=== PATIENT | female | born 1950 | race Caucasian/White ===

== ENCOUNTER → 2017-07-03 | Outpatient (CLI) | payer MEDICARE, OTHER ==
[~2017-07-03] MED LIST: Ativan1 MG PO; CALCAVITDA PO; CHOL10002; LORA.5 PO
[2017-07-03 17:47] LABS: Adenovirus F 40/41 Not Detected (NOT DETECT); Campylobacter Sp Not Detected (NOT DETECT); Cryptosporidium Not Detected (NOT DETECT); Cyclospora Cayetanensis Not Detected (NOT DETECT); E. Coli O157 Not Detected (NOT DETECT); Entamoeba Histolytica Not Detected (NOT DETECT); Enteroaggregative E. coli-EAEC Not Detected (NOT DETECT); Enteropathogenic E. coli-EPEC Not Detected (NOT DETECT); Enterotoxigenic E. coli-ETEC Not Detected (NOT DETECT); Giardia Lamblia Not Detected (NOT DETECT); Norovirus GI/GII Not Detected (NOT DETECT); Plesiomonas Shigelloides Not Detected (NOT DETECT); Rotavirus A Not Detected (NOT DETECT); Salmonella Sp Not Detected (NOT DETECT); Sapovirus Not Detected (NOT DETECT); Shiga Toxin-prod E. coli-STEC Not Detected (NOT DETECT); Shigella/Enteroin E. coli-EIEC Not Detected (NOT DETECT); Vibrio Cholerae Not Detected (NOT DETECT); Vibrio Sp Not Detected (NOT DETECT); Yersinia Enterocolitica Not Detected (NOT DETECT)
[2017-07-03 19:33] LABS: Astrovirus Detected (NOT DETECT)
== END | disposition home or self-care (01) ==
LOC: LAB EV 12:10 → LAB SHORT 12:10
PROVIDERS: Physician Assistant Medical
DX: K52.9 Noninfective gastroenteritis and colitis, unspecified (principal)
CPT/HCPCS: 87507

== ENCOUNTER → 2017-08-28 | Outpatient (CLI) | payer MEDICARE, OTHER ==
[2017-08-29 14:35] LABS: Calcium, Urine 20.9 mg/dL (2.0-17.5); Calcium, Urine Calculation 480.7 mg/24hrs (42.0-353.0)
[2017-08-29 14:41] LABS: Creatinine Urine 39.2 mg/dL (27.00-270.00)
== END ==
LOC: LAB 04:20 → LAB SHORT 04:20
PROVIDERS: Internal Medicine Endocrinology, Diabetes & Metabolism
DX: M81.0 Age-related osteoporosis without current pathological fracture (principal)
CPT/HCPCS: 81050; 82340; 82570

== ENCOUNTER 2019-02-08 06:44 | Day surgery (SDC) | payer MEDICARE, OTHER ==
[~2019-02-08] VITALS: Ht 165.1 cm; Wt 81.4 kg
[~2019-02-08 06:44] MED LIST changes: +CALCIUM 1,0001 EACH PO; +Naprosyn500 MG PO; +VITAMIN D5000 UNIT PO
[2019-02-08] MEDS ORDERED: TUMS500 MG (07:23)
== END 2019-02-08 08:32 | disposition home or self-care (01) ==
LOC: ORSCSDS 06:44
PROVIDERS: Surgery
PROC: 0DJD8ZZ Inspection of Lower Intestinal Tract, Via Natural or Artificial Opening Endoscopic (ICD-10-PCS; principal; 2019-02-08 08:00)
DX: Z12.11 Encounter for screening for malignant neoplasm of colon (principal); K57.30 Diverticulosis of large intestine without perforation or abscess without bleeding; F41.9 Anxiety disorder, unspecified; Z83.71 Family history of colonic polyps; E66.9 Obesity, unspecified; Z68.30 Body mass index [BMI] 30.0-30.9, adult
CPT/HCPCS: J2405; J2704; J7120

== ENCOUNTER 2019-05-04 23:36 | Inpatient (IN) | payer MEDICARE, OTHER ==
[~2019-05-04] VITALS: Ht 165.1 cm; Wt 79.9 kg
[~2019-05-04 23:36] MED LIST changes: +TUMS500 MG; -VITAMIN D5000 UNIT PO; +Vitamin D2000 UNIT PO
[2019-05-05 00:14] LABS: BASOPHILS ABSOLUTE AUTO 0.03 K/mm3 (0.00-0.23); BASOPHILS PERCENT AUTO 1 % (0-2); EOSINOPHILS ABSOLUTE AUTO 0.24 K/mm3 (0.00-0.68); EOSINOPHILS PERCENT AUTO 4 % (0-6); Hemoglobin 14.6 g/dL (11.5-16.0); IMMATURE GRAN ABSOLUTE AUTO 0.01 K/mm3 (0.00-0.10); IMMATURE GRAN PERCENT AUTO 0 % (0-1); LYMPHOCYTES ABSOLUTE AUTO 1.21 K/mm3 (0.84-5.20); LYMPHOCYTES PERCENT AUTO 20 % (21-46); MONOCYTES ABSOLUTE AUTO 0.38 K/mm3 (0.16-1.47); MONOCYTES PERCENT AUTO 6 % (4-13); Mean Corpuscular HGB 30.2 pg (26.0-34.0); Mean Corpuscular HGB Conc 33.2 g/dL (31.5-36.5); Mean Corpuscular Volume 91 fL (80-100); Mean Platelet Volume 10.4 fL (9.1-12.4); NEUTROPHILS ABSOLUTE AUTO 4.07 K/mm3 (1.96-9.15); NEUTROPHILS PERCENT AUTO 69 % (41-73); Platelet Count 147 K/mm3 (150-400); RDW Standard Deviation 43.9 fL (35.1-46.3); Red Blood Cell Count 4.83 M/mm3 (3.80-5.20); White Blood Cell Count 5.94 K/mm3 (4.00-11.30)
[2019-05-05 00:32] LABS: Alanine Aminotransfer (ALT/SGP 21 U/L (12-78); Albumin, Blood 3.7 g/dL (3.4-5.0); Albumin/Globulin Ratio 1.2 (0.8-1.8); Alk Phos 63 U/L (50-136); Anion Gap 6 mmol/L (6-16); Aspartate Aminotrans (AST/SGOT 17 U/L (12-37); Bilirubin, Total 0.4 mg/dL (0.1-1.0); Blood Urea Nitrogen 14 mg/dL (8-24); Bun/Creatinine Ratio 18.1 (12.0-20.0); CO2, Blood 25 mmol/L (21-32); Calcium, Blood 8.8 mg/dL (8.5-10.1); Chloride, Blood 109 mmol/L (98-108); Creatinine, Blood 0.77 mg/dL (0.40-1.00); Globulin, Blood 3.2 g/dL (2.2-4.0); Glomerular Filtration Rate >60 (60-); Glucose, Blood 130 mg/dL (70-99); Potassium, Blood 3.8 mmol/L (3.5-5.5); Sodium, Blood 140 mmol/L (136-145); Total Protein, Blood 6.9 g/dL (6.4-8.2)
[2019-05-05 01:41] LABS: International Normalized Ratio 1.02; Prothrombin Time Results 10.9 Sec (9.7-11.5)
[2019-05-05 01:44] LABS: CHOL/HDL RATIO 2.6; Cholesterol 185 mg/dL (50-200); HDL Cholesterol 72 mg/dL (>39); LDL/HDL RATIO 1.4; Low Density Lipoprotein Chol 102 mg/dL (0-110); Triglycerides 54 mg/dL (30-160); Very Low Density Lipoprot Chol 10 mg/dL (6-32)
--- NOTE | 2019-05-05 04:37 | NUR ---
SHIFT SUMMARY: PATIENT ARRIVED TO PCU 3 AT APPROX 0130 VIA GURNEY FROM ER. PATIENT ABLE TO TRANSFER TO BED WITH NO ASSISTANCE, SKIN C/D/I. PATIENT ADMISSION COMPLETED, SBP 160'S AND PRN HYPERTENSION MEDICATIONS GIVEN PER MD ORDERS. SBP NOW IN 130'S. PATIENT HAS INTERMITTENT FACIAL FLUSHING AND MILD INCREASE IN HR, PATIENT STATES SHE IS ANXIOUS. ECHO TO BE DONE IN THE AM AND NURSING NETWORKER MADE AWARE. PATIENT ORIENTED TO ROOM, CALL LIGHT AND HOSPITAL POLICIES, BED LOW AND LOCKED WITH CALL LIGHT WITHIN REACH.
--- NOTE | 2019-05-05 09:37 | NUR ---
ANGIOGRAM PT TRANSFERD VIA BED TO [facility]ART [facility]. PT AWAKE AND ALERT. VSS. HEPARIN GTT STOPPED. CONTNUE POT.
--- NOTE | 2019-05-05 10:18 | NUR ---
POST ANGIOGRAM PT RETURNEDF [facility] AWAKE AND ALERT. BEDSIDE REPORT COMPLETED. VSS. [place] TR BAND SITE CD&I. PT RECEIVED IV HEPARIN WHILE IN HEART CENTER. HEPARIN GTT OFF AT THIS TIME. PT C/O NAUSEA. SHE RECEIVED ZOFRAN IN ANGIOGRAM. CALLED CT TO COORDINATE CT ANGIOGRAM. DR DENNIS OK WITH SCAN WHILE TR BAND IS IN PLACE. CONTINUE POT.
--- NOTE | 2019-05-05 10:34 | NUR ---
POST OP ANGIOGRAM RIGTH TR BAND SIE CD&I. VS WNL. PT RESTING QUIETLY. CONTINUE POT.
--- NOTE | 2019-05-05 11:24 | NUR ---
PST ANGIOGRAM PT RESTING QUIETLY. SR. NO CHEST PAIN. RIGHT RADIAL TR BAND CD&I. VSS. AWAITING CT ANGIOGRAM. TALKED WITH CT. ABOUT 1215. CONTINUE POT.
--- NOTE | 2019-05-05 11:55 | NUR ---
NOTE ECHO AT BEDSIDE. UNAble to do vs. right TR band site cd&i. Pt awake and alert without complaint. continue pot.
--- NOTE | 2019-05-05 12:20 | NUR ---
ct angiogram PT MOVED TO [facility] FOR TRANSPORT TO CT ANGIOGRAM. PT AWAKE AND ALERT. RIGTH TR BAND CD&I. NO HEMATOMA NOTED. CMS WNL. DAUGHTER AT BEDSIDE. CONTINUE POT.
--- NOTE | 2019-05-05 12:51 | NUR ---
TR BAND REMOVAL 1ML OF AIR X2 REMOVED. SITE STABLE. WRIST BOARD REAPPLIED. PT NIBBLING ON CRACKERS AND [place]ICA MIST. CONTINUE POT.
[2019-05-05] MEDS ORDERED: DILT60 PO (13:36)
--- NOTE | 2019-05-05 14:17 | NUR ---
Echocardiogram performed.
--- NOTE | 2019-05-05 15:27 | NUR ---
TR BAND REMOVAL TR BAND OFF. OPSITE PLACED OVER THE POKE SITE. WRIST BOARD RETURNED TO RIGHT WRIST TO PROTECT SITE. PT RESTING QUIELTY. CONTINUE POT.
--- NOTE | 2019-05-05 16:23 | NUR ---
DISCHARGE HOME PT ALERT AND ORIENTED. TR BAND OFF RIGHT RADIAL SITE. CLEAR DRESSING CD$I. WRIST BOARD ON. PT HAS AN APPINTMENT WITH DR GARCIA ALREADY ON MONDAY. VSS. DAUGHTER TO DRIVE HOME. DISCUSSED WOUND CARE WITH PT/DAUGHTER. CONTINUE POT.
== END 2019-05-05 16:27 | disposition home or self-care (01) | DRG 282 ==
LOC: ER 23:36 → PCU 05-05 00:57
PROVIDERS: Emergency Medicine; ADMIT Family Medicine
PROC: 4A023N7 Measurement of Cardiac Sampling and Pressure, Left Heart, Percutaneous Approach (ICD-10-PCS; principal; 2019-05-05)
PROC: B2111ZZ Fluoroscopy of Multiple Coronary Arteries using Low Osmolar Contrast (ICD-10-PCS; 2019-05-05)
PROC: B2151ZZ Fluoroscopy of Left Heart using Low Osmolar Contrast (ICD-10-PCS; 2019-05-05)
DX: I21.4 Non-ST elevation (NSTEMI) myocardial infarction (principal); F41.9 Anxiety disorder, unspecified; I10 Essential (primary) hypertension
CPT/HCPCS: 36415; 71046; 71260; 76937; 80053; 80061; 82947; 83690; 84484; 85025; 85347; 85379; 85610; 85730; 93005; 93010; 93306; 93458; 99152; 99153; 99285-25; C1769; C1894; J0360; J1644; J2250; J2405; J3010; J7030; J7040; Q9967

== ENCOUNTER → 2020-01-15 | Outpatient (CLI) | payer MEDICARE, OTHER ==
[~2020-01-15] MED LIST changes: +DILT60 PO; +Floxin10 ML BOTHEARS; +Ocuflox5 ML LEFTEYE
== END | disposition home or self-care (01) ==
LOC: LAB 09:25 → LAB SHORT 09:25 → LAB FUT 12-15 15:10
DX: R19.7 Diarrhea, unspecified (principal)
CPT/HCPCS: 87177; 87209

== ENCOUNTER 2020-01-18 16:10 | Emergency (ER) | payer MEDICARE, OTHER ==
[~2020-01-18] VITALS: Ht 165.1 cm; Wt 81.7 kg
[~2020-01-18 16:10] MED LIST changes: -Floxin10 ML BOTHEARS; -Ocuflox5 ML LEFTEYE
[2020-01-18] MEDS ORDERED: Ocuflox5 ML LEFTEYE (17:52)
[2020-01-18] MEDS ORDERED: Floxin10 ML BOTHEARS (18:32)
== END 2020-01-18 18:35 | disposition home or self-care (01) ==
LOC: ER 16:10
DX: S05.02XA Injury of conjunctiva and corneal abrasion without foreign body, left eye, initial encounter (principal); Z79.899 Other long term (current) drug therapy; Z88.1 Allergy status to other antibiotic agents; Z88.0 Allergy status to penicillin; Z88.8 Allergy status to other drugs, medicaments and biological substances; F41.9 Anxiety disorder, unspecified; W22.8XXA Striking against or struck by other objects, initial encounter; Y93.89 Activity, other specified
CPT/HCPCS: 99282

== ENCOUNTER → 2020-02-03 | Outpatient (CLI) | payer MEDICARE, OTHER ==
[~2020-02-03] MED LIST changes: +Floxin10 ML BOTHEARS; +Ocuflox5 ML LEFTEYE
== END ==
LOC: LAB SHORT 11:07 → PLD 11:07
DX: D22.5 Melanocytic nevi of trunk (principal); D22.61 Melanocytic nevi of right upper limb, including shoulder; D22.62 Melanocytic nevi of left upper limb, including shoulder; L82.1 Other seborrheic keratosis
CPT/HCPCS: 88305

== ENCOUNTER → 2020-03-02 | Outpatient (CLI) | payer MEDICARE, OTHER ==
[2020-03-02 13:09] LABS: Source, Urine Clean Catch
[2020-03-02 14:39] LABS: Appearance, Urine Clear (Clear); Bilirubin, Urine Neg (Neg); Blood, Urine Neg (Neg); Color, Urine Yellow (P-Yellow); Glucose Qualitative, Urine Neg (Neg); Ketones, Urine Neg (Neg); Leukocyte Esterase, Urine 1+ (Neg); Nitrite, Urine Neg (Neg); Protein, Urine Neg (Neg); Specific Gravity, Urine 1.005 (1.003-1.022); Urobilinogen, Urine NORM (Normal)
[2020-03-02 14:52] LABS: Bacteria Few /hpf; Red Blood Cells, Urine 0-2 /hpf (0-2); Squamous Epithelial Cells Few /hpf (Few)
== END | disposition home or self-care (01) ==
LOC: OLS 13:08 → LAB SHORT 13:08 → LAB FUT 03-02 11:40 → EDSTATUS 03-02 11:40
PROVIDERS: Internal Medicine
DX: N39.0 Urinary tract infection, site not specified (principal)
CPT/HCPCS: 81001; 87086

== ENCOUNTER 2020-10-31 09:19 | Emergency (ER) | payer MEDICARE, OTHER ==
[~2020-10-31] VITALS: Ht 165.1 cm; Wt 85.3 kg
[2020-10-31 09:54] LABS: BASOPHILS ABSOLUTE AUTO 0.05 K/mm3 (0.00-0.23); BASOPHILS PERCENT AUTO 1 % (0-2); EOSINOPHILS ABSOLUTE AUTO 0.47 K/mm3 (0.00-0.68); EOSINOPHILS PERCENT AUTO 7 % (0-6); Hematocrit 46.9 % (33.0-51.0); Hemoglobin 15.3 g/dL (11.5-16.0); IMMATURE GRAN ABSOLUTE AUTO 0.01 K/mm3 (0.00-0.10); IMMATURE GRAN PERCENT AUTO 0 % (0-1); LYMPHOCYTES PERCENT AUTO 25 % (21-46); MONOCYTES PERCENT AUTO 7 % (4-13); Mean Corpuscular HGB 29.5 pg (26.0-34.0); Mean Corpuscular HGB Conc 32.6 g/dL (31.5-36.5); Mean Corpuscular Volume 91 fL (80-100); Mean Platelet Volume 10.2 fL (9.1-12.4); NEUTROPHILS ABSOLUTE AUTO 4.03 K/mm3 (1.96-9.15); NEUTROPHILS PERCENT AUTO 60 % (41-73); Platelet Count 192 K/mm3 (150-400); RDW Coefficient Variation 13.1 % (11.7-14.2); RDW Standard Deviation 43.9 fL (35.1-46.3); Red Blood Cell Count 5.18 M/mm3 (3.80-5.20); White Blood Cell Count 6.76 K/mm3 (4.00-11.30)
[2020-10-31 10:12] LABS: Alanine Aminotransfer (ALT/SGP 27 U/L (12-78); Albumin, Blood 3.8 g/dL (3.4-5.0); Albumin/Globulin Ratio 1.1 (0.8-1.8); Alk Phos 95 U/L (50-136); Anion Gap 3 mmol/L (6-16); Aspartate Aminotrans (AST/SGOT 20 U/L (12-37); Bilirubin, Total 0.3 mg/dL (0.1-1.0); Blood Urea Nitrogen 14 mg/dL (8-24); Bun/Creatinine Ratio 20.9 (12.0-20.0); CO2, Blood 28 mmol/L (21-32); Calcium, Blood 9.3 mg/dL (8.5-10.1); Chloride, Blood 109 mmol/L (98-108); Creatinine, Blood 0.67 mg/dL (0.40-1.00); Globulin, Blood 3.6 g/dL (2.2-4.0); Glomerular Filtration Rate >60 (60-); Glucose, Blood 120 mg/dL (70-99); Potassium, Blood 3.9 mmol/L (3.5-5.5); Sodium, Blood 140 mmol/L (136-145); Total Protein, Blood 7.4 g/dL (6.4-8.2); Troponin I <0.015 ng/mL (0.000-0.040)
== END 2020-10-31 11:49 | disposition home or self-care (01) ==
LOC: ER 09:19
PROVIDERS: Physician Assistant
DX: R55 Syncope and collapse (principal); R00.2 Palpitations; Z88.1 Allergy status to other antibiotic agents; Z88.0 Allergy status to penicillin
CPT/HCPCS: 36415; 71046; 80053; 83690; 83880; 84443; 84484; 85025; 93005; 93010; 99284-25

== ENCOUNTER → 2021-03-02 | Outpatient (CLI) | payer MEDICARE, OTHER | LOC: LAB 11:22 → LAB SHORT 11:22 | DX: D48.5 Neoplasm of uncertain behavior of skin (principal); D22.62 Melanocytic nevi of left upper limb, including shoulder; L81.4 Other melanin hyperpigmentation; D22.71 Melanocytic nevi of right lower limb, including hip; Z88.0 Allergy status to penicillin; Z88.1 Allergy status to other antibiotic agents; Z88.8 Allergy status to other drugs, medicaments and biological substances | CPT/HCPCS: 88305 ==

== ENCOUNTER 2022-07-02 11:49 | Emergency (ER) | payer MEDICARE, OTHER ==
[~2022-07-02] VITALS: Ht 165.1 cm; Wt 85.7 kg
[2022-07-02] MEDS ORDERED: LIDO700A20 TOP (14:15)
== END 2022-07-02 14:27 | disposition home or self-care (01) ==
LOC: ER 11:49
DX: M54.2 Cervicalgia (principal); M54.9 Dorsalgia, unspecified
CPT/HCPCS: 93005; 93010; 99283-25; A9270

== ENCOUNTER → 2024-08-08 | Outpatient (CLI) | payer MEDICARE, OTHER ==
[~2024-08-08] MED LIST changes: +LIDO700A20 TOP
== END ==
LOC: LAB SHORT 10:32 → LAB 10:32
DX: N39.0 Urinary tract infection, site not specified (principal)
CPT/HCPCS: 87086